=== PATIENT | female | born 1995 | race Two or more races ===

== ENCOUNTER 2022-08-26 09:58 | Emergency (ER) | payer OTHER ==
[~2022-08-26] VITALS: Ht 167.6 cm; Wt 74.4 kg
== END 2022-08-26 15:44 | disposition home or self-care (01) ==
LOC: ER 09:58 → EMR PED 09:58 → ER 10:19
DX: M54.9 Dorsalgia, unspecified (principal); N39.0 Urinary tract infection, site not specified; Z20.822 Contact with and (suspected) exposure to COVID-19; N20.0 Calculus of kidney

== ENCOUNTER 2022-09-08 11:53 | Emergency (ER) | payer OTHER ==
[~2022-09-08] VITALS: Ht 167.6 cm; Wt 73.5 kg
== END 2022-09-08 17:13 | disposition home or self-care (01) ==
LOC: ER 11:53
DX: S93.491A Sprain of other ligament of right ankle, initial encounter (principal); W10.8XXA Fall (on) (from) other stairs and steps, initial encounter; Y93.89 Activity, other specified; Y92.89 Other specified places as the place of occurrence of the external cause; Y99.8 Other external cause status